=== PATIENT | female | born 1960 | race American Indian/Alaskan Native ===

== ENCOUNTER 2016-12-12 08:43 | Emergency (ER) | payer BC ==
[2016-12-12 09:33] VITALS: BP 133/97
== END 2016-12-12 17:00 ==
LOC: ED 08:43
DX: M54.9 Dorsalgia, unspecified (principal); M25.551 Pain in right hip; V49.9XXA Car occupant (driver) (passenger) injured in unspecified traffic accident, initial encounter; Y93.89 Activity, other specified; Y99.9 Unspecified external cause status; Y92.410 Unspecified street and highway as the place of occurrence of the external cause; Z53.21 Procedure and treatment not carried out due to patient leaving prior to being seen by health care provider